=== PATIENT | female | born 2000 | race Caucasian/White ===

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

== ENCOUNTER 2020-08-21 11:23 | Emergency (ER) | payer SELFPAY ==
[2020-08-21 11:37] VITALS: BP 125/75; PULSE 92
[2020-08-21] MEDS ORDERED: Ketorolac 30 MG/ML SDV IVPUSH ONE (11:50)
[2020-08-21] MEDS ORDERED: Ondansetron 4 MG/2 ML SDV IVPUSH ONE (11:50)
[2020-08-21] MEDS ORDERED: Sodium Chloride 0.9% 1,000 ML IV STA (11:50)
[2020-08-21] MEDS ORDERED: diphenhydrAMINE 50 MG/ML SDV IVPUSH ONE (11:50)
--- NOTE | 2020-08-21 12:08 | EDM.PDOC ---
ED HPI GENERAL MEDICAL PROBLEM - General Chief Complaint: Headache Stated Complaint: MIGRAINE Time Seen by Provider: 08/21/20 11:27 Source of Information: Reports: Patient History Limitations: Reports: No Limitations - History of Present Illness INITIAL COMMENTS - FREE TEXT/NARRATIVE: Patient is a 19-year-old female presenting to the emergency department with complaints of a 4-day history of headache. She states she feels like she has tension in her neck which then travels up through her head. She has light sensitivity. She did see spots previously, but denies that at this time. She denies any nausea or vomiting. She states that she has put icy hot on her neck and this has improved the symptoms. She has never been diagnosed with migraines but states she did have viral meningitis at the age of 16 which caused severe headaches.. She denies any fever, chills, or respiratory complaints. She has used [id number] ibuprofen for pain. She also smoked marijuana last night in an attempt to alleviate the pain. Headache Pain Score (Numeric/FACES): 10 - Related Data Allergies Allergy/AdvReac Type Severity Reaction Status Date / Time codeine Allergy Rash Verified 08/21/20 11:34 Penicillins Allergy Rash Verified 08/21/20 11:34 Home Meds: Home Meds Albuterol [IJD: Albuterol HFA] 2 puff INH Q4H PRN 04/23/18 [History] Past Medical History - Past Health History Medical/Surgical History: Denies Medical/Surgical History HEENT History: Reports: Impaired Vision Other HEENT History: wears eyeglasses Respiratory History: Reports: Asthma Gastrointestinal History: Reports: Helicobacter Pylori, Other (See Below) Other Gastrointestinal History: stomach ulcers. 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 Neurological History: Reports: Migraines, Other (See Below) Other Neuro History: viral meningitis. Psychiatric History: Reports: Anxiety, Depression, Suicide Attempt, Suicidal Ideation Other Psychiatric History: "I've tried drinking myself to ." States has tried overdosing on pills. States has had multiple suicide attempts, "more than I can remember." Hematologic History: Reports: Anemia, Other (See Below) Other Hematologic History: states has taken iron supplements in past. Social & Family History - Tobacco Use Tobacco Use Status *Q: Never Tobacco User - Caffeine Use Caffeine Use: Reports: Coffee, Energy Drinks, Soda, Tea - Living Situation & Occupation Living situation: Reports: , with Spouse, with Family (Inlaws) Occupation: Unemployed ED ROS GENERAL - Review of Systems Review Of Systems: See Below Constitutional: Reports: No Symptoms. Denies: Fever, Chills, Weakness HEENT: Reports: No Symptoms Respiratory: Reports: No Symptoms Cardiovascular: Reports: No Symptoms Endocrine: Reports: No Symptoms GI/Abdominal: Reports: No Symptoms. Denies: Abdominal Pain, Nausea, Vomiting : Reports: No Symptoms Musculoskeletal: Reports: Neck Pain Skin: Reports: No Symptoms Neurological: Reports: Headache. Denies: Confusion, Dizziness Psychiatric: Reports: No Symptoms Hematologic/Lymphatic: Reports: No Symptoms - Physical Exam Exam: See Below General Appearance: Alert, WD/WN, No Apparent Distress Head Exam: Atraumatic, Normocephalic Neck: Normal Inspection, Supple, Non-Tender, Full Range of Motion Respiratory/Chest: No Respiratory Distress, Lungs Clear, Normal Breath Sounds, No Accessory Muscle Use, Chest Non-Tender Cardiovascular: Normal Peripheral Pulses, Regular Rate, Rhythm, No Edema, No Gallop, No JVD, No Murmur, No Rub GI/Abdominal: Normal Bowel Sounds, Soft, Non-Tender, No Organomegaly, No Distention, No Abnormal Bruit, No Mass Neuro Exam (Abbreviated): Alert, Oriented, CN II-XII Intact, Normal Cognition, Normal Gait, Normal Reflexes, No Motor/Sensory Deficits, Other (Negative Kernig and Brudzinski) Extremities: Normal Inspection, Normal Range of Motion, Non-Tender, No Pedal Edema, Normal Capillary Refill Psychiatric: Normal Affect, Normal Mood Skin Exam: Warm, Dry, Intact, Normal Color, No Rash Course - Vital Signs Last Recorded V/S: Last Vital Signs Temp 98.0 F 08/21/20 11:35 Pulse 92 08/21/20 11:35 Resp 18 08/21/20 11:35 BP 125/75 08/21/20 11:35 Pulse Ox 99 08/21/20 11:35 - Orders/Labs/Meds Orders: Active Orders 24 hr Category Date Time Status Head wo Cont [CT] Stat Exams 08/21/20 11:50 Taken Meds: Medications Discontinued Medications Generic Name Dose Route Start Last Admin Trade Name Kapil PRN Reason Stop Dose Admin Diphenhydramine HCl 50 mg 08/21/20 11:50 08/21/20 12:17 Benadryl IVPUSH 08/21/20 11:51 50 mg ONETIME ONE Administration Sodium Chloride 1,000 mls @ 999 mls/hr 08/21/20 11:50 08/21/20 12:19 Normal Saline IV 08/21/20 12:50 999 mls/hr NOW STA Administration Ketorolac Tromethamine 30 mg 08/21/20 11:50 08/21/20 12:20 Toradol IVPUSH 08/21/20 11:51 30 mg ONETIME ONE Administration Ondansetron HCl 4 mg 08/21/20 11:50 08/21/20 12:22 Zofran IVPUSH 08/21/20 11:51 4 mg ONETIME ONE Administration - Re-Assessments/Exams Free Text/Narrative Re-Assessment/Exam: Is a 19-year-old female presented to the emergency department with complaints of 4-day history of headache with light sensitivity. She is had no nausea or v omiting. Denies any injury. States that the headache originates in her upper neck and wraps around her head. IcyHot does improve the symptoms. She has not taken anything for pain thus far today. Kernig and Brudzinski tests were negative for any meningeal irritation. I have ordered a CT scan of the head. We will give her a 1 L bolus of normal saline, Toradol, Zofran, and Benadryl. 08/21/20 13:08 Patient's headache has resolved. CT scan of the head showed no acute intracranial abnormalities. We will discharge the patient home with instructions to rest and use Tylenol and ibuprofen. Discharge instructions as documented. Departure - Departure Time of Disposition: 13:09 Disposition: Home, Self-Care 01 Condition: Good Clinical Impression: Headache Qualifiers: Headache type: unspecified Headache chronicity pattern: acute headache Intractability: not intractable Qualified Code(s): R51.9 - Headache, unspecified - Discharge Information *PRESCRIPTION DRUG MONITORING PROGRAM REVIEWED*: No *COPY OF PRESCRIPTION DRUG MONITORING REPORT IN PATIENT [place]: No Instructions: General Headache Without Cause, [id number] Referrals: PCP,Unknown [Primary Care Provider] - Forms: ED Department Discharge Additional Instructions: You were seen in the emergency department today for headache for the last [address] scan was completed of your head and showed no acute intracranial abno rmalities. While in the ER, you received IV fluids, Toradol for pain, Zofran for nausea, and Benadryl. This did resolve your headache. Recommend that you go home and rest. Use [id number] Tylenol and ibuprofen as needed for discomfort. Return to the ER as needed. Sepsis Event Note (ED) - Evaluation Sepsis Screening Result: No Definite Risk - Focused Exam Vital Signs: Vital Signs Temp Pulse Resp BP Pulse Ox 08/21/20 11:35 98.0 F 92 18 125/75 99 - My Orders Last 24 Hours: My Active Orders 08/21/20 11:50 Head wo Cont [CT] Stat - Assessment/Plan Last 24 Hours: My Active Orders 08/21/20 11:50 Head wo Cont [CT] Stat
== END 2020-08-21 13:42 | disposition home or self-care (01) ==
LOC: JD.ED 11:23
DX: R51.9 Headache, unspecified (principal); J45.909 Unspecified asthma, uncomplicated; Z88.5 Allergy status to narcotic agent; Z88.0 Allergy status to penicillin
CPT/HCPCS: 70450; 96374; 96375; 99284; J1200; J1885; J2405; J7030; 99283

== ENCOUNTER 2021-10-14 17:22 | Emergency (ER) | payer MEDICAID ==
--- NOTE | 2021-10-14 18:31 | EDM.PDOC ---
ED HPI GENERAL MEDICAL PROBLEM - General Chief Complaint: Respiratory Problem Stated Complaint: TROUBLE BREATHING Time Seen by Provider: 10/14/21 17:32 Source of Information: Reports: Patient History Limitations: Reports: No Limitations - History of Present Illness INITIAL COMMENTS - FREE TEXT/NARRATIVE: The patient presents with a cough, sore throat, fever and shortness of breath. This all started yesterday. She has been laying around today. She has a history of asthma and she has used her inhaler a couple of times today. She has no chest pain, abdominal pain, nausea or vomiting. She is not sure if she has been around anyone with COVID. Onset: Gradual Duration: Day(s): (2) Severity: Moderate Improves with: Reports: None Worsens with: Reports: None Associated Symptoms: Reports: Cough, Fever/Chills, Shortness of Breath. Denies: Chest Pain, Headaches, Nausea/Vomiting Throat Pain Score (Numeric/FACES): 6 - Related Data Allergies Allergy/AdvReac Type Severity Reaction Status Date / Time codeine Allergy Rash Verified 10/14/21 17:33 Home Meds: Home Meds Albuterol [IJD: Albuterol HFA] 2 puff INH Q4H PRN 04/23/18 [History] Albuterol [Proventil HFA] 2 puff INH Q4H PRN #1 inhaler 10/14/21 [Rx] Fluticasone Propionate 1 spray NASBOTH ASDIRECTED PRN 10/14/21 [History] dexAMETHasone [Dexamethasone] 6 mg PO DAILY #12 tab 10/14/21 [Rx] traMADol [Ultram] 50 mg PO TID PRN 10/14/21 [History] Past Medical History - Past Health History Medical/Surgical History: Denies Medical/Surgical History HEENT History: Reports: Impaired Vision, Other (See Below) Other HEENT History: wears eyeglasses, strep throat Respiratory History: Reports: Asthma, Bronchitis, Recurrent, Pneumonia, Recurrent Gastrointestinal History: Reports: Helicobacter Pylori, PUD, Other (See Below) Other Gastrointestinal History: stomach ulcers. Genitourinary History: Reports: UTI, Recurrent THINNER SPRAYER History: Reports: Other THINNER SPRAYER History: control implant Musculoskeletal History: Reports: Fracture Other Musculoskeletal History: fx arm, fx collarbone. Neurological History: Reports: Migraines, Other (See Below) Other Neuro History: viral meningitis. Psychiatric History: Reports: Anxiety, Depression, Suicide Attempt, Suicidal Ideation Other Psychiatric History: "I've tried drinking myself to ." States has tried overdosing on pills. States has had multiple suicide attempts, "more than I can remember." Hematologic History: Reports: Anemia, Other (See Below) Other Hematologic History: states has taken iron supplements in past. Social & Family History - Tobacco Use Tobacco Use Status *Q: Never Tobacco User Second Hand Smoke Exposure: No - Caffeine Use Caffeine Use: Reports: Coffee, Soda - Recreational Drug Use Recreational Drug Use: No - Living Situation & Occupation Living situation: Reports: , with Spouse, with Family (Inlaws) Occupation: Unemployed ED ROS GENERAL - Review of Systems Review Of Systems: See Below Constitutional: Reports: Fever, Chills, Malaise, Weakness HEENT: Reports: Throat Pain Respiratory: Reports: Shortness of Breath, Cough Cardiovascular: Reports: No Symptoms Endocrine: Reports: No Symptoms GI/Abdominal: Reports: No Symptoms : Reports: No Symptoms Musculoskeletal: Reports: No Symptoms ED EXAM, GENERAL - Physical Exam Exam: See Below Exam Limited By: No Limitations General Appearance: Alert, No Apparent Distress Ears: Normal External Exam Nose: Normal Inspection Throat/Mouth: Normal Inspection Head: Atraumatic, Normocephalic Neck: Normal Inspection, Supple, Non-Tender Respiratory/Chest: No Respiratory Distress, Lungs Clear, Normal Breath Sounds Cardiovascular: Regular Rate, Rhythm, No Edema, No Murmur GI/Abdominal: Soft, Non-Tender, No Organomegaly, No Mass Back Exam: Normal Inspection Extremities: Normal Inspection Course - Vital Signs Last Recorded V/S: Last Vital Signs Temp 98.1 F 10/14/21 17:30 Pulse 66 10/14/21 17:30 Resp 16 10/14/21 17:30 BP 111/62 10/14/21 17:30 Pulse Ox 98 10/14/21 17:30 - Orders/Labs/Meds Orders: Active Orders 24 hr Category Date Time Status CXR [Chest 1V Frontal] [CR] Stat Exams 10/14/21 17:45 Taken Labs: Laboratory Tests 10/14/21 Range/Units 17:25 SARS-CoV-2 RNA ([facility]) Positive H (NEGATIVE) - Re-Assessments/Exams Free Text/Narrative Re-Assessment/Exam: 10/14/21 18:30 I ordered a CXR and a COVID test. 10/14/21 19:19 Her CXR looks good. She is COVID positive. We talked about the monoclonal antibodies. She is interested but she cannot stay. She needs to go home. She will contact her doctor tomorrow and see if she can set that up for her. I will give her more albuterol and some dexamethasone. Departure - Departure Time of Disposition: 19:25 Disposition: Home, Self-Care 01 Condition: Good Clinical Impression: COVID-19 - Discharge Information *PRESCRIPTION DRUG MONITORING PROGRAM REVIEWED*: Not Applicable *COPY OF PRESCRIPTION DRUG MONITORING REPORT IN PATIENT [place]: Not Applicable Prescriptions: dexAMETHasone [Dexamethasone] 6 mg PO DAILY #12 tab Albuterol [Proventil HFA] 2 puff INH Q4H PRN #1 inhaler PRN Reason: Shortness Of Breath Referrals: Radha Maldonado NP [Primary Care Provider] - Forms: ED Department Discharge Additional Instructions: Drink plenty of fluids. Take the dexamethasone 6mg daily until gone. Use your inhaler 2 puffs every 6 hours as needed for shortness of breath. Talked to your doctor about getting the monoclonal antibodies. If she cannot set that up and you are interested please return. Please return if you are worse. Sepsis Event Note (ED) - Evaluation Sepsis Screening Result: No Definite Risk - Focused Exam Vital Signs: Vital Signs Temp Pulse Resp BP Pulse Ox 10/14/21 17:30 98.1 F 66 16 111/62 98 - My Orders Last 24 Hours: My Active Orders 10/14/21 17:45 CXR [Chest 1V Frontal] [CR] Stat - Assessment/Plan Last 24 Hours: My Active Orders 10/14/21 17:45 CXR [Chest 1V Frontal] [CR] Stat
[2021-10-14 20:03] VITALS: BP 112/80; PULSE 86
--- NOTE | 2021-10-15 07:08 | CR ---
Chest: Frontal view of the chest was obtained. Comparison: Prior chest x-ray of 12/25/14. Heart size and mediastinum are normal. Lungs are clear with no acute parenchymal change. No acute osseous abnormality is appreciated. Impression: 1. Nothing acute is seen on frontal chest x-ray. Diagnostic code #1
== END 2021-10-14 19:35 | disposition home or self-care (01) ==
LOC: JD.ED 17:22
DX: U07.1 COVID-19 (principal); J45.909 Unspecified asthma, uncomplicated; Z88.5 Allergy status to narcotic agent; Z79.899 Other long term (current) drug therapy
CPT/HCPCS: 71045; 71045-26; 99283; 99283-25; U0002

== ENCOUNTER 2022-02-28 06:46 | Emergency (ER) | payer MEDICAID ==
[2022-02-28] MEDS ORDERED: Albuterol/Ipratropium 3.0-0.5 MG/3 ML Neb Soln NEB ONE (06:54)
[2022-02-28] MEDS ORDERED: predniSONE 20 MG Tab PO STA (06:56)
[2022-02-28] MEDS ORDERED: Albuterol 6.7 GM Inhaler INH ONE (07:37)
[2022-02-28 08:06] VITALS: BP 118/88; PULSE 88
== END 2022-02-28 08:06 | disposition home or self-care (01) ==
LOC: JD.ED 06:46
DX: J45.909 Unspecified asthma, uncomplicated (principal); Z88.5 Allergy status to narcotic agent
CPT/HCPCS: 71045; 94640; 99285; A9270; J7512; J7620-GY

== ENCOUNTER 2022-05-18 14:46 | Emergency (ER) | payer MEDICAID ==
[2022-05-18] MEDS ORDERED: Sodium Chloride 0.9% 10 ML Syringe FLUSH PRN (17:00)
[2022-05-18] MEDS ORDERED: Sodium Chloride 0.9% 1,000 ML IV STA (17:00)
[2022-05-18] MEDS ORDERED: Ondansetron 4 MG/2 ML SDV IVPUSH ONE (17:00)
[2022-05-18 17:05] VITALS: BP 115/79; PULSE 74
[2022-05-18] MEDS ORDERED: Iopamidol 612 MG/ML 100 ML Bottle IVPUSH ONE (18:36)
[2022-05-18] MEDS ORDERED: Sodium Chloride 0.9% 10 ML Syringe FLUSH ONE (18:36)
== END 2022-05-18 19:18 | disposition home or self-care (01) ==
LOC: JD.ED 14:46
DX: K52.9 Noninfective gastroenteritis and colitis, unspecified (principal); J45.909 Unspecified asthma, uncomplicated; Z88.5 Allergy status to narcotic agent; Z79.899 Other long term (current) drug therapy
CPT/HCPCS: 36415; 80053; 81001; 83690; 84703; 85025; 96361; 96374; 99284; J2405; J3490; J7030; 99283

== ENCOUNTER 2023-01-03 08:15 | Emergency (ER) | payer MEDICAID ==
[2023-01-03 08:25] VITALS: BP 134/86; PULSE 90
== END 2023-01-03 11:18 | disposition home or self-care (01) ==
LOC: JD.ED 08:15
DX: O03.9 Complete or unspecified spontaneous abortion without complication (principal); J45.909 Unspecified asthma, uncomplicated; Z91.048 Other nonmedicinal substance allergy status; Z88.5 Allergy status to narcotic agent
CPT/HCPCS: 36415; 76817; 76817-26; 84702; 85025; 86900; 86901; 99284

== ENCOUNTER 2023-06-18 07:19 | Emergency (ER) | payer MEDICAID ==
[2023-06-18] MEDS ORDERED: Ondansetron 4 MG Tab.DIS PO ONE (08:14)
[2023-06-18 08:57] VITALS: BP 129/90; PULSE 51
== END 2023-06-18 08:47 | disposition home or self-care (01) ==
LOC: JD.ED 07:19
DX: O99.311 Alcohol use complicating pregnancy, first trimester (principal); F10.10 Alcohol abuse, uncomplicated; O99.511 Diseases of the respiratory system complicating pregnancy, first trimester; J45.909 Unspecified asthma, uncomplicated; O99.331 Smoking (tobacco) complicating pregnancy, first trimester; F17.210 Nicotine dependence, cigarettes, uncomplicated; Z79.899 Other long term (current) drug therapy; Z88.5 Allergy status to narcotic agent; Z91.048 Other nonmedicinal substance allergy status; Z3A.01 Less than 8 weeks gestation of pregnancy
CPT/HCPCS: 36415; 84702; 99284; A9270; 99283

== ENCOUNTER 2023-07-02 14:22 | Emergency (ER) | payer MEDICAID ==
[2023-07-02 14:51] VITALS: PULSE 87
[2023-07-02 16:07] LABS: BASOPHILS PERCENT AUTO 0.3 % (0.0-1.0); EOSINOPHILS ABSOLUTE AUTO 0.1 K/mm3 (0.0-0.4); EOSINOPHILS PERCENT AUTO 1.1 % (0.0-6.0); HEMATOCRIT 45.3 % (37.0-47.0); HEMOGLOBIN 15.6 gm/dl (12.0-16.0); IMMATURE GRAN ABSOLUTE AUTO 0.06 K/mm3 (0.00-0.05); IMMATURE GRAN PERCENT AUTO 0.5 % (0.0-0.4); LYMPHOCYTES ABSOLUTE AUTO 3.7 K/mm3 (1.0-4.8); LYMPHOCYTES PERCENT AUTO 29.8 % (24.0-44.0); MEAN CORPUSCULAR HEMOGLOBIN 32.6 pg (28.0-32.0); MEAN CORPUSCULAR HGB CONC 34.4 g/dl (32.0-36.0); MEAN CORPUSCULAR VOLUME 94.8 fl (83.0-99.0); MEAN PLATELET VOLUME 9.3 fl (9.4-12.3); MONOCYTES ABSOLUTE AUTO 0.9 K/mm3 (0.0-0.8); MONOCYTES PERCENT AUTO 6.9 % (0.0-8.0); NEUTROPHILS ABSOLUTE AUTO 7.6 K/mm3 (1.8-7.7); NEUTROPHILS PERCENT AUTO 61.4 % (41.0-71.0); PLATELET COUNT,PLT 372 K/mm3 (150-400); RED BLOOD CELL COUNT 4.78 M/mm3 (4.10-5.30); WHITE BLOOD CELL COUNT,WBC 12.38 K/mm3 (3.9-11.3)
[2023-07-02 16:52] LABS: A/G RATIO 0.9 (1-2); ANION GAP 13.1 (5-15); BILIRUBIN TOTAL 0.5 mg/dL (0.2-1.0); BUN/CREATININE RATIO 14.3 (14-18); C-REACTIVE PROTEIN 2.4 mg/dL (<1.0); CALCIUM 9.6 mg/dL (8.5-10.1); CREATININE 0.7 mg/dL (0.55-1.02); EST CRCL DRUG DOSING (CG) 117.01 mL/min; POTASSIUM,K 4.1 mEq/L (3.5-5.1); PROTEIN TOTAL,TP 8.3 g/dl (6.4-8.2)
[2023-07-02 17:19] LABS: APPEARANCE,URINE SLT CLOUDY (Clear); BILIRUBIN,URINE NEGATIVE (Negative); COLOR,URINE YELLOW (Yellow); GLUCOSE,URINE NEGATIVE (Negative); KETONES,URINE 2+ (Negative); LEUKOCYTE ESTERASE,URINE NEGATIVE (Negative); NITRITE,URINE NEGATIVE (Negative); OCCULT BLOOD,URINE NEGATIVE (Negative); PROTEIN,URINE TRACE (Negative)
[2023-07-02 18:05] VITALS: BP 128/71
[2023-07-02 18:09] LABS: BACTERIA,URINE MODERATE /hpf (FEW); MUCUS,URINE MODERATE /hpf (FEW); RBC,URINE 0-5 /hpf (0-5); WBC,URINE 0-5 /hpf (0-5)
== END 2023-07-02 18:02 | disposition home or self-care (01) ==
LOC: JD.ED 14:22
DX: O99.891 Other specified diseases and conditions complicating pregnancy (principal); R25.2 Cramp and spasm; O99.511 Diseases of the respiratory system complicating pregnancy, first trimester; J45.909 Unspecified asthma, uncomplicated; O99.331 Smoking (tobacco) complicating pregnancy, first trimester; F17.210 Nicotine dependence, cigarettes, uncomplicated; Z91.048 Other nonmedicinal substance allergy status; Z88.5 Allergy status to narcotic agent; Z88.8 Allergy status to other drugs, medicaments and biological substances; Z3A.01 Less than 8 weeks gestation of pregnancy
CPT/HCPCS: 36415; 76817; 76817-26; 80053; 81001; 84702; 85025; 86140; 86900; 86901; 99284

== ENCOUNTER 2023-09-04 14:57 | Emergency (ER) | payer MEDICAID ==
[2023-09-04 15:10] VITALS: BP 114/71; PULSE 84
[2023-09-04] MEDS ORDERED: Acetaminophen 325 MG Tab PO ONE (15:36)
== END 2023-09-04 15:49 | disposition home or self-care (01) ==
LOC: JD.ED 14:57
DX: O9A.212 Injury, poisoning and certain other consequences of external causes complicating pregnancy, second trimester (principal); O99.891 Other specified diseases and conditions complicating pregnancy; M53.3 Sacrococcygeal disorders, not elsewhere classified; R11.0 Nausea; Z79.899 Other long term (current) drug therapy; Z91.048 Other nonmedicinal substance allergy status; Z88.5 Allergy status to narcotic agent; Z3A.14 14 weeks gestation of pregnancy; W00.2XXA Other fall from one level to another due to ice and snow, initial encounter
CPT/HCPCS: 99283

== ENCOUNTER 2023-09-16 00:43 | Emergency (ER) | payer MEDICAID ==
[2023-09-16] MEDS ORDERED: Lactated Ringers 1,000 ML IV ONE (02:20)
[2023-09-16 03:04] LABS: BASOPHILS PERCENT AUTO 0.3 % (0.0-1.0); EOSINOPHILS ABSOLUTE AUTO 0.6 K/mm3 (0.0-0.4); EOSINOPHILS PERCENT AUTO 5.2 % (0.0-6.0); HEMATOCRIT 32.8 % (37.0-47.0); HEMOGLOBIN 11.5 gm/dl (12.0-16.0); IMMATURE GRAN ABSOLUTE AUTO 0.08 K/mm3 (0.00-0.05); IMMATURE GRAN PERCENT AUTO 0.7 % (0.0-0.4); LYMPHOCYTES ABSOLUTE AUTO 3.2 K/mm3 (1.0-4.8); LYMPHOCYTES PERCENT AUTO 26.5 % (24.0-44.0); MEAN CORPUSCULAR HEMOGLOBIN 32.4 pg (28.0-32.0); MEAN CORPUSCULAR HGB CONC 35.1 g/dl (32.0-36.0); MEAN CORPUSCULAR VOLUME 92.4 fl (83.0-99.0); MEAN PLATELET VOLUME 9.9 fl (9.4-12.3); MONOCYTES ABSOLUTE AUTO 0.8 K/mm3 (0.0-0.8); MONOCYTES PERCENT AUTO 6.3 % (0.0-8.0); NEUTROPHILS ABSOLUTE AUTO 7.5 K/mm3 (1.8-7.7); PLATELET COUNT,PLT 286 K/mm3 (150-400); RED BLOOD CELL COUNT 3.55 M/mm3 (4.10-5.30)
[2023-09-16 03:16] LABS: APPEARANCE,URINE CLEAR (Clear); BILIRUBIN,URINE NEGATIVE (Negative); COLOR,URINE YELLOW (Yellow); GLUCOSE,URINE NEGATIVE (Negative); KETONES,URINE NEGATIVE (Negative); LEUKOCYTE ESTERASE,URINE TRACE (Negative); NITRITE,URINE NEGATIVE (Negative); OCCULT BLOOD,URINE NEGATIVE (Negative); PROTEIN,URINE NEGATIVE (Negative)
[2023-09-16 03:32] LABS: RBC,URINE 0-5 /hpf (0-5); WBC,URINE 0-5 /hpf (0-5)
[2023-09-16 03:33] LABS: BACTERIA,URINE MANY /hpf (FEW); MUCUS,URINE RARE /hpf (FEW)
[2023-09-16 03:34] LABS: A/G RATIO 0.8 (1-2); ALBUMIN 2.9 g/dl (3.4-5.0); ANION GAP 12.8 (5-15); BILIRUBIN TOTAL 0.6 mg/dL (0.2-1.0); BUN/CREATININE RATIO 8.3 (14-18); CALCIUM 9.1 mg/dL (8.5-10.1); CREATININE 0.6 mg/dL (0.55-1.02); EST CRCL DRUG DOSING (CG) 152.4 mL/min; POTASSIUM,K 3.8 mEq/L (3.5-5.1); PROTEIN TOTAL,TP 6.7 g/dl (6.4-8.2)
[2023-09-16] MEDS ORDERED: Cephalexin 500 MG Cap PO ONE (07:04)
[2023-09-16 07:42] VITALS: BP 129/82; PULSE 89
== END 2023-09-16 07:30 | disposition home or self-care (01) ==
LOC: JD.ED 00:43
DX: O20.9 Hemorrhage in early pregnancy, unspecified (principal); O23.42 Unspecified infection of urinary tract in pregnancy, second trimester; N39.0 Urinary tract infection, site not specified; O99.512 Diseases of the respiratory system complicating pregnancy, second trimester; J45.909 Unspecified asthma, uncomplicated; Z86.16 Personal history of COVID-19; Z91.048 Other nonmedicinal substance allergy status; Z88.5 Allergy status to narcotic agent; Z79.899 Other long term (current) drug therapy; Z3A.16 16 weeks gestation of pregnancy
CPT/HCPCS: 36415; 76815; 80053; 81001; 85025; 86850; 86900; 86901; 87086; 90384; 99284; A9270; J2790

== ENCOUNTER 2023-11-10 10:08 | Emergency (ER) | payer MEDICAID ==
[2023-11-10 11:47] VITALS: BP 112/75; PULSE 78
== END 2023-11-10 11:45 | disposition home or self-care (01) ==
LOC: JD.ED 10:08
DX: K04.7 Periapical abscess without sinus (principal); J45.909 Unspecified asthma, uncomplicated; Z79.899 Other long term (current) drug therapy; F17.210 Nicotine dependence, cigarettes, uncomplicated; Z86.16 Personal history of COVID-19; Z88.5 Allergy status to narcotic agent; Z91.048 Other nonmedicinal substance allergy status
CPT/HCPCS: 99282; 99283

== ENCOUNTER 2024-02-24 18:18 | Observation (INO) | payer MEDICAID ==
[~2024-02-24 18:18] MED LIST: Bupivacaine 0.25% 10 ML SDV ONE
[2024-02-24] MEDS ORDERED: Sodium Chloride 0.9% 10 ML Syringe FLUSH PRN (19:40)
[2024-02-24] MEDS ORDERED: Acetaminophen 325 MG Tab PO PRN (19:40)
[2024-02-24] MEDS ORDERED: Ondansetron 4 MG/2 ML SDV IVPUSH PRN (19:40)
[2024-02-24] MEDS ORDERED: Lidocaine 1% 50 ML MDV INJECT PRN (19:40)
[2024-02-24] MEDS ORDERED: Oxytocin/Lactated Ringers 30 UNIT/500 ML BAG IV SCH (19:45)
[2024-02-24] MEDS ORDERED: Calcium Carbonate 500 MG Tab.Chew PO PRN (19:52)
[2024-02-24] MEDS: Misoprostol 25 MCG (1/4 of 100 MCG) Tab VAG ONE (19:59)
[2024-02-24 20:09] LABS: BASOPHILS ABSOLUTE AUTO 0.1 K/mm3 (0.0-0.2); BASOPHILS PERCENT AUTO 0.4 % (0.0-1.0); EOSINOPHILS ABSOLUTE AUTO 0.3 K/mm3 (0.0-0.4); HEMATOCRIT 33.3 % (37.0-47.0); HEMOGLOBIN 11.2 gm/dl (12.0-16.0); IMMATURE GRAN ABSOLUTE AUTO 0.25 K/mm3 (0.00-0.05); IMMATURE GRAN PERCENT AUTO 1.8 % (0.0-0.4); LYMPHOCYTES ABSOLUTE AUTO 2.6 K/mm3 (1.0-4.8); LYMPHOCYTES PERCENT AUTO 18.6 % (24.0-44.0); MEAN CORPUSCULAR HEMOGLOBIN 30.4 pg (28.0-32.0); MEAN CORPUSCULAR HGB CONC 33.6 g/dl (32.0-36.0); MEAN CORPUSCULAR VOLUME 90.5 fl (83.0-99.0); MEAN PLATELET VOLUME 10.1 fl (9.4-12.3); MONOCYTES ABSOLUTE AUTO 0.9 K/mm3 (0.0-0.8); MONOCYTES PERCENT AUTO 6.4 % (0.0-8.0); NEUTROPHILS ABSOLUTE AUTO 9.8 K/mm3 (1.8-7.7); NEUTROPHILS PERCENT AUTO 70.8 % (41.0-71.0); PLATELET COUNT,PLT 302 K/mm3 (150-400); RED BLOOD CELL COUNT 3.68 M/mm3 (4.10-5.30)
[2024-02-24] MEDS ORDERED: ePHEDrine 50 MG/ML SDV IVPUSH PRN (21:08)
[2024-02-24] MEDS ORDERED: diphenhydrAMINE 50 MG/ML SDV IVPUSH PRN (21:08)
[2024-02-24] MEDS: Sodium Chloride 0.9% 10 ML Syringe FLUSH SCH (23:41)
[2024-02-25] MEDS: Misoprostol 25 MCG (1/4 of 100 MCG) Tab VAG PRN (00:56)
[2024-02-25] MEDS: Lactated Ringers 1,000 ML IV SCH (01:48)
[2024-02-25] MEDS: Nalbuphine 10 MG/ML Syringe IVPUSH PRN (01:49)
[2024-02-25] MEDS: Oxytocin/Lactated Ringers 30 UNIT/500 ML BAG IV SCH (09:23)
[2024-02-25] MEDS: fentaNYL 100 MCG/2 ML SDV EPIDUR PRN (11:25)
[2024-02-25] MEDS: Bupivacaine/fentaNYL/NS 100 ML Bag EPIDUR PRN (11:25)
[2024-02-25] MEDS ORDERED: Docusate Sodium 100 MG Cap PO PRN (17:51)
[2024-02-25] MEDS: Benzocaine/Menthol 20%-0.5% Spray 78 GM Cannister TOP PRN (19:03)
[2024-02-25] MEDS: Witch Hazel Medicated Pads 40/Jar TOP PRN (19:03)
[2024-02-25] MEDS: Ibuprofen 600 MG Tab PO PRN (21:49)
[2024-02-26] MEDS: Acetaminophen 325 MG Tab PO PRN (03:53)
[2024-02-27 08:54] VITALS: BP 120/76; PULSE 68
== END 2024-02-27 11:22 | disposition home or self-care (01) ==
LOC: JD.OB 18:18
PROVIDERS: ADMIT Obstetrics & Gynecology; ATTEND Obstetrics & Gynecology
DX: O80 Encounter for full-term uncomplicated delivery (principal); S31.41XA Laceration without foreign body of vagina and vulva, initial encounter; J45.909 Unspecified asthma, uncomplicated; F41.9 Anxiety disorder, unspecified; F32.A Depression, unspecified; Z37.0 Single live birth; Z3A.39 39 weeks gestation of pregnancy; Z79.899 Other long term (current) drug therapy; Z88.5 Allergy status to narcotic agent; Z91.048 Other nonmedicinal substance allergy status; Z87.891 Personal history of nicotine dependence; Z86.16 Personal history of COVID-19
CPT/HCPCS: 36415; 51702; 59025; 59409; 85025; 85461; 86592; 86850; 86870; 86900; 86901; A9270-GY; J2300; J2790; J3010; J3490; J7120; J7999